=== PATIENT | female | born 1985 | race Caucasian/White ===

== ENCOUNTER → 2019-04-15 | Outpatient (CLI) | payer BC ==
[2019-04-16 00:51] LABS: T4, Free (Free Thyroxine) 1.3 ng/dL (0.80-1.80)
== END | disposition home or self-care (01) ==
LOC: LABWHC1 15:29
PROVIDERS: ATTEND Internal Medicine
DX: E66.9 Obesity, unspecified (principal); Z68.26 Body mass index [BMI] 26.0-26.9, adult; Z71.3 Dietary counseling and surveillance
CPT/HCPCS: 36415; 84439; 84443; 84481

== ENCOUNTER → 2019-05-17 | Outpatient (CLI) | payer BC ==
[2019-05-18 00:41] LABS: T4, Free (Free Thyroxine) 1.3 ng/dL (0.80-1.80)
== END | disposition home or self-care (01) ==
LOC: LABWHC1 17:38
PROVIDERS: ATTEND Internal Medicine
DX: E03.9 Hypothyroidism, unspecified (principal)
CPT/HCPCS: 36415; 84439; 84443

== ENCOUNTER 2019-10-14 09:20 | Outpatient (CLI) | payer BC ==
[2019-10-14 10:09] VITALS: BP 121/85; PULSE 101; RESP 16; TEMP 97.9
== END 2019-10-14 10:02 | disposition home or self-care (01) ==
LOC: FBPOP 09:20
PROVIDERS: ATTEND Obstetrics & Gynecology
DX: O13.9 Gestational [pregnancy-induced] hypertension without significant proteinuria, unspecified trimester (principal); Z3A.00 Weeks of gestation of pregnancy not specified
CPT/HCPCS: 59025

== ENCOUNTER 2019-10-18 16:14 | Inpatient (IN) | payer BC ==
[2019-10-18 17:05] LABS: Protein/Creatinine Ratio,Urine 0.061
[2019-10-18 17:19] LABS: Basophils % (A) 0 %; Eosinophils # (A) 0.1 k/uL (0-0.7); Eosinophils % (A) 1 %; HCT 33.6 % (34.0-46.0); HGB 11.2 gm/dL (11.4-16.0); Lymphocytes # (A) 1.5 k/uL (1.0-4.8); Lymphocytes % (A) 19 %; MCH 26.5 pg (25.0-35.0); MCHC 33.4 g/dL (31.0-37.0); MCV 79.3 fL (80.0-100.0); Mean Platelet Volume 9.5; Monocytes # (A) 0.5 k/uL (0-1.0); Monocytes % (A) 6 %; Neutrophils # (A) 5.6 k/uL (1.3-7.7); Neutrophils % (A) 71 %; Platelet Count 211 k/uL (150-450); RBC 4.23 m/uL (3.80-5.40); RDW 12.9 % (11.5-15.5); WBC 7.8 k/uL (3.8-10.6)
[2019-10-18 17:23] LABS: ALT 10 U/L (4-34); AST 24 U/L (14-36); African American GFR (CKD) >90 (>60 ml/min/1.73 sqM); Blood Urea Nitrogen 9 mg/dL (7-17); LDH 434 U/L (313-618); Non-African American GFR(CKD) >90 (>60 ml/min/1.73 sqM); Uric Acid 5.2 mg/dL (3.7-7.4)
[2019-10-18 17:26] LABS: Amorphous Sediment,Urine Rare /hpf; Bacteria,Urine Occasional /hpf; Calcium Oxalate Crystals,Urine Many /hpf; Hyaline Casts,Urine 1 /lpf (0-2); Mucus,Urine Few /hpf; RBC,Urine 24 /hpf (0-5); Squamous Epithelial Cell,Urine 1 /hpf (0-4); WBC,Urine 5 /hpf (0-5)
[2019-10-18 18:05] LABS: Appearance,Urine Slightly Cloudy (Clear); Color,Urine Yellow
[2019-10-18 18:06] LABS: Protein,Urine 1+ (Negative)
[2019-10-18 18:07] LABS: Bilirubin,Urine 1+ (Negative); Blood,Urine Negative (Negative); Glucose,Urine (UA) Negative (Negative); Ketones,Urine Negative (Negative); Leukocyte Esterase,Urine Small (Negative); Nitrite,Urine Negative (Negative)
[2019-10-18] MEDS ORDERED: ACETAMINOPHEN TAB 500 MG TAB PO STA (23:30)
[2019-10-18 23:32] VITALS: RESP 16
[2019-10-19] MEDS ORDERED: CLINDAMYCIN 900 MG in DEXTROSE 5% IN WATER 50 ML IVPB SCH ×2 (05:30)
[2019-10-19] MEDS ORDERED: OXYTOCIN 30 UNITS/500 ML NS 30 UNIT in SALINE 1 500ML.BAG IV SCH (06:00)
[2019-10-19] MEDS ORDERED: LIDOCAINE 0.5% (PF) 5 MG/ML (50 ML SDV) SQ PRN (06:00)
[2019-10-19] MEDS ORDERED: CARBOPROST TROMETHAMINE 250 MCG/ML 1 ML AMP IM PRN (06:00)
[2019-10-19] MEDS ORDERED: TERBUTALINE 1 MG/ML VIAL SQ PRN (06:00)
[2019-10-19] MEDS ORDERED: METHYLERGONOVINE 0.2 MG/ML 1 ML AMP IM PRN (06:00)
[2019-10-19] MEDS ORDERED: LACTATED RINGERS 1,000 ML IV SCH (06:00)
[2019-10-19] MEDS ORDERED: OXYTOCIN 10 UNIT/ML 1 ML VIAL IM PRN (06:00)
[2019-10-19 07:25] LABS: Basophils % (A) 0 %; Eosinophils # (A) 0.1 k/uL (0-0.7); Eosinophils % (A) 2 %; HCT 35.5 % (34.0-46.0); Lymphocytes # (A) 2.1 k/uL (1.0-4.8); Lymphocytes % (A) 27 %; MCH 27.1 pg (25.0-35.0); MCHC 33.8 g/dL (31.0-37.0); MCV 79.9 fL (80.0-100.0); Mean Platelet Volume 9.5; Monocytes # (A) 0.5 k/uL (0-1.0); Monocytes % (A) 7 %; Neutrophils # (A) 4.8 k/uL (1.3-7.7); Neutrophils % (A) 63 %; Platelet Count 220 k/uL (150-450); RBC 4.44 m/uL (3.80-5.40); RDW 12.9 % (11.5-15.5); WBC 7.7 k/uL (3.8-10.6)
--- NOTE | 2019-10-19 07:38 | P.HPOB ---
History of Present Illness H&P Date: 10/19/19 Chief Complaint: induction of labor 34-year-old presented at 38 weeks and 2 days to my office with a headache and nausea with a slightly elevated blood pressure. She was sent to triage for evaluation. She had another elevated blood pressure in triage but her frequent eclamptic labs were all normal. She was diagnosed with gestational hypertension admitted for induction of labor. Her cervix is 2-3 cm dilated, 80% effaced, and -2 station. She is shannan irregularly. heart tones 135 with moderate variability and reactive. Review of Systems All systems: negative Constitutional: Denies chills, Denies fever Eyes: denies blurred vision, denies pain Ears, nose, mouth and throat: Denies headache, Denies sore throat Cardiovascular: Denies chest pain, Denies shortness of breath Respiratory: Denies cough Gastrointestinal: Denies abdominal pain, Denies diarrhea, Denies nausea, Denies vomiting Genitourinary: Denies dysuria, Denies hematuria Musculoskeletal: Denies myalgias Integumentary: Denies pruritus, Denies rash Neurological: Denies numbness, Denies weakness Psychiatric: Denies anxiety, Denies depression Endocrine: Denies fatigue, Denies weight change Past Medical History Past Medical History: Asthma, Thyroid Disorder Additional Past Medical History / Comment(s): Obstetric history: She has had one previous vaginal delivery and 2 miscarriages. This is her fourth . She's had care with me since first trimester. Blood type is A+, antibodies negative, rubella immune, hepatitis B negative, RPR nonreactive, GBS positive. History of Any Multi-Drug Resistant Organisms: None Reported Past Surgical History: Cholecystectomy, Tonsillectomy Past Anesthesia/Blood Transfusion Reactions: No Reported Reaction Past Psychological History: Anxiety Smoking Status: Never smoker Past Alcohol Use History: Occasional Past Drug Use History: None Reported - Past Family History Brother(s) Family Medical History: Asthma Medications and Allergies Home Medications Medication Instructions Recorded Confirmed Type Albuterol Inhaler (Mhu) [Ventolin 1 - 2 puff INHALATION Q6HR PRN 01/17/15 10/14/19 History Inhaler] Levothyroxine Sodium [Synthroid] 75 mcg PO DAILY 01/17/15 10/14/19 History Budesonide-Formot 160-4.5 Mcg 2 puff INHALATION ONCE PRN 10/14/19 10/14/19 History [Symbicort 160-4.5 Mcg Inhaler] Pnv No.95/Ferrous Fum/Folic AC 1 each PO DAILY 10/14/19 10/14/19 History [ Multivitamin Tablet] Allergies Allergy/AdvReac Type Severity Reaction Status Date / Time Penicillins Allergy Severe Anaphylaxis Verified 10/18/19 16:32 Exam Osteopathic Statement: *. No significant issues noted on an osteopathic structural exam other than those noted in the History and Physical/Consult. Vital Signs Temp Pulse Resp BP Pulse Ox 10/19/19 04:00 89 115/71 10/18/19 23:31 97.2 F L 81 16 120/84 10/18/19 19:37 97.9 F 90 16 148/92 100 10/18/19 18:42 97.4 F L 76 15 132/87 99 Intake and Output 10/18/19 10/19/19 10/19/19 22:59 06:59 14:59 Other: # Voids 2 2 Weight 74.389 kg Heart: Regular rate and rhythm Lungs: Clear to auscultation bilaterally Abdomen: Soft, nontender Extremities: Negative Homans sign, 2+ pitting edema in bilateral lower extremities Results Result Diagrams: 10/19/19 05:50 10/18/19 17:04 Abnormal Lab Results - Last 24 Hours (Table) 10/18/19 10/18/19 10/19/19 Range/Units 16:25 17:04 05:50 Hgb 11.2 L (11.4-16.0) gm/dL Hct 33.6 L (34.0-46.0) % MCV 79.3 L 79.9 L (80.0-100.0) fL Urine Appearance Slightly Cloudy H (Clear) Urine Protein 1+ H (Negative) Urine Bilirubin 1+ H (Negative) Urine RBC 24 H (0-5) /hpf Calcium Oxalate Crystal Many H (None) /hpf Amorphous Sediment Rare H (None) /hpf Urine Bacteria Occasional H (None) /hpf Urine Mucus Few H (None) /hpf Assessment and Plan (1) Gestational hypertension Current Visit: Yes Status: Acute Code(s): O13.9 - GESTATIONAL HTN W/O SIGNIFICANT PROTEINURIA, UNSP TRIMESTER SNOMED Code(s): 561160712 Plan: 1. Induction of labor with amniotomy and Pitocin 2. Anticipate normal vaginal delivery
[2019-10-19] MEDS ORDERED: SODIUM CHLORIDE 0.9% 100 ML BAG ONE (09:40)
[2019-10-19] MEDS ORDERED: ROPIVACAINE 5MG/ML 20ML VIAL ONE (09:40)
[2019-10-19] MEDS ORDERED: fentaNYL (PF) 50 MCG/ML 5 ML AMP ONE (09:40)
[2019-10-19] MEDS ORDERED: ACETAMINOPHEN TAB 325 MG TAB PO PRN (12:50)
[2019-10-19] MEDS ORDERED: LANOLIN CREAM 5 GM TUBE TOPICAL PRN (12:50)
[2019-10-19] MEDS ORDERED: BENZOCAINE/MENTHOL SPRAY 1 GM/SPRAY AEROSOL TOPICAL PRN (12:50)
[2019-10-19] MEDS ORDERED: diphenhydrAMINE 50 MG CAP PO PRN (12:50)
[2019-10-19] MEDS ORDERED: ZOLPIDEM 5 MG TAB PO PRN (12:50)
[2019-10-19] MEDS ORDERED: HYDROCORTISONE 2.5% RECTAL CREAM 30 GM TUBE RECTAL PRN (12:50)
[2019-10-19] MEDS ORDERED: SIMETHICONE 80 MG CHEWABLE PO PRN (12:50)
[2019-10-19] MEDS ORDERED: WITCH HAZEL 1 EACH MED..PAD TOPICAL PRN (12:50)
[2019-10-19] MEDS ORDERED: IBUPROFEN 600 MG TAB PO PRN (12:50)
[2019-10-19] MEDS ORDERED: diphenhydrAMINE 50 MG/ML 1 ML VIAL IVP PRN ×2 (12:50)
[2019-10-19] MEDS ORDERED: diphenhydrAMINE 25 MG CAP PO PRN (12:50)
[2019-10-19] MEDS ORDERED: OXYTOCIN 20 UNITS/1000 ML NS 1,000 ML IV SCH (13:00)
[2019-10-19] MEDS ORDERED: SENNOSIDES-DOCUSATE SODIUM 1 EACH TAB PO SCH (20:00)
[2019-10-20 06:49] LABS: Basophils % (A) 0 %; Eosinophils # (A) 0.1 k/uL (0-0.7); Eosinophils % (A) 1 %; HCT 27.6 % (34.0-46.0); Hypochromasia Slight; Lymphocytes # (A) 2.1 k/uL (1.0-4.8); Lymphocytes % (A) 22 %; MCH 26.7 pg (25.0-35.0); MCHC 33.1 g/dL (31.0-37.0); MCV 80.8 fL (80.0-100.0); Mean Platelet Volume 9.4; Monocytes # (A) 0.5 k/uL (0-1.0); Monocytes % (A) 6 %; Neutrophils # (A) 6.4 k/uL (1.3-7.7); Neutrophils % (A) 69 %; Platelet Count 159 k/uL (150-450); RBC 3.41 m/uL (3.80-5.40); WBC 9.3 k/uL (3.8-10.6)
[2019-10-20 06:56] LABS: HGB 9.1 gm/dL (11.4-16.0)
--- NOTE | 2019-10-20 07:09 | P.PROBDLV ---
Vaginal Delivery Note - . Vaginal Delivery Note: 4-year-old presented at 38 weeks and 2 days to my office with a headache and nausea with a slightly elevated blood pressure. She was sent to triage for evaluation. She had another elevated blood pressure in triage but her frequent eclamptic labs were all normal. She was diagnosed with gestational hypertension admitted for induction of labor. Her cervix is 2-3 cm dilated, 80% effaced, and -2 station. She is shannan irregularly. heart tones 135 with moderate variability and reactive. Pitocin was started. Amniotomy performed at 6:45 AM and clear to bloody fluid noted. When she was uncomfortable she got an epidural. Her cervix was completely dilated at 11:35 AM. She pushed, and delivered a viable male infant intact perineum under epidural anesthesia at 12:05 PM. Head delivered OA, nuchal cord 1 easily reduced, anterior shoulder delivered gentle downward guidance followed by posterior shoulder and rest of body. Nose and mouth bulb suctioned, cord clamped and cut, infant placed mother's abdomen. Apgars 9, 9, weight 7 pounds. Placenta delivered spontaneously, intact with three-vessel cord at 12:07 PM. Vagina, cervix, and perineum were inspected. First-degree midline laceration was repaired with 3-0 Vicryl. Estimated blood loss 250 mL. Mother and baby in stable condition.
--- NOTE | 2019-10-20 07:14 | P.DS ---
Providers Date of admission: 10/18/19 17:45 Expected date of discharge: 10/20/19 Attending physician: Shruthi Muñiz Primary care physician: Stated None - Discharge Diagnosis(es) (1) Gestational hypertension Current Visit: Yes Status: Resolved (2) Status post normal vaginal delivery Current Visit: Yes Status: Acute Hospital Course: Patient presented for induction of labor due to gestational hypertension. She underwent a normal vaginal delivery. her course was uncomplicated. She'll be discharged home day #1 in stable condition to follow-up with me in 6 weeks. Plan - Discharge Summary New Discharge Prescriptions: New Ibuprofen [Motrin] 600 mg PO Q6HR PRN #30 tab PRN Reason: Mild Pain Or Fever >= 100.5 No Action Levothyroxine Sodium [Synthroid] 75 mcg PO DAILY Albuterol Inhaler (Mhu) [Ventolin Inhaler] 1 - 2 puff INHALATION Q6HR PRN PRN Reason: sob Budesonide-Formot 160-4.5 Mcg [Symbicort 160-4.5 Mcg Inhaler] 2 puff INHALATION ONCE PRN PRN Reason: Dyspnea Pnv No.95/Ferrous Fum/Folic AC [ Multivitamin Tablet] 1 each PO DAILY Discharge Medication List Albuterol Inhaler (Mhu) [Ventolin Inhaler] 1 - 2 puff INHALATION Q6HR PRN 01/17/15 [History] Levothyroxine Sodium [Synthroid] 75 mcg PO DAILY 01/17/15 [History] Budesonide-Formot 160-4.5 Mcg [Symbicort 160-4.5 Mcg Inhaler] 2 puff INHALATION ONCE PRN 10/14/19 [History] Pnv No.95/Ferrous Fum/Folic AC [ Multivitamin Tablet] 1 each PO DAILY 10/14/19 [History] Ibuprofen [Motrin] 600 mg PO Q6HR PRN #30 tab 10/20/19 [Rx] Follow up Appointment(s)/Referral(s): Shruthi Muñiz DO [Doctor of Osteopathic Medicine] - 6 Weeks Discharge Disposition: HOME SELF-CARE
[2019-10-21 09:01] VITALS: BP 141/89; PULSE 69; TEMP 98
== END 2019-10-20 13:40 | disposition home or self-care (01) | DRG 807 ==
LOC: FBPOP 16:14 → 4FBP 17:45
PROVIDERS: ADMIT Obstetrics & Gynecology; ATTEND Obstetrics & Gynecology
PROC: 10E0XZZ Delivery of Products of Conception, External Approach (ICD-10-PCS; principal; 2019-10-19)
PROC: 3E033VJ Introduction of Other Hormone into Peripheral Vein, Percutaneous Approach (ICD-10-PCS; principal; 2019-10-19)
PROC: 10907ZC Drainage of Amniotic Fluid, Therapeutic from Products of Conception, Via Natural or Artificial Opening (ICD-10-PCS; principal; 2019-10-19)
PROC: 0HQ9XZZ Repair Perineum Skin, External Approach (ICD-10-PCS; principal; 2019-10-19)
DX: O13.4 Gestational [pregnancy-induced] hypertension without significant proteinuria, complicating childbirth (principal); Z37.0 Single live birth; O99.344 Other mental disorders complicating childbirth; F41.9 Anxiety disorder, unspecified; O99.52 Diseases of the respiratory system complicating childbirth; J45.909 Unspecified asthma, uncomplicated; O69.81X0 Labor and delivery complicated by cord around neck, without compression, not applicable or unspecified; O70.0 First degree perineal laceration during delivery; O99.824 Streptococcus B carrier state complicating childbirth; Z3A.38 38 weeks gestation of pregnancy; Z79.51 Long term (current) use of inhaled steroids; Z79.890 Hormone replacement therapy; Z82.5 Family history of asthma and other chronic lower respiratory diseases; Z90.49 Acquired absence of other specified parts of digestive tract
CPT/HCPCS: 59025; 81001; 82565; 82570; 83615; 84156; 84450; 84460; 84520; 84550; 85025; 86850; 86900; 86901; 99215

== ENCOUNTER 2019-10-24 13:43 | Inpatient (IN) | payer BC ==
[2019-10-24] MEDS ORDERED: LACTATED RINGERS 1,000 ML IV SCH (14:30)
[2019-10-24] MEDS ORDERED: MAGNESIUM SULFATE-D5W PMX 1 GM in DEXTROSE/WATER 1 100ML.BAG IVPB ONE (14:37)
[2019-10-24] MEDS ORDERED: MAGNESIUM SULFATE-WATER PMX 4 GM in WATER FOR INJECTION 1 100ML.BAG IVPB ONE (14:45)
[2019-10-24] MEDS ORDERED: MAGNESIUM SULFATE-D5W PMX 1 GM in DEXTROSE/WATER 1 100ML.BAG IVPB SCH (14:45)
[2019-10-24 15:12] LABS: Basophils % (A) 0 %; Eosinophils # (A) 0.2 k/uL (0-0.7); Eosinophils % (A) 3 %; HGB 11.9 gm/dL (11.4-16.0); Hypochromasia Slight; Lymphocytes # (A) 1.8 k/uL (1.0-4.8); Lymphocytes % (A) 25 %; MCH 26.9 pg (25.0-35.0); MCHC 32.9 g/dL (31.0-37.0); MCV 81.6 fL (80.0-100.0); Mean Platelet Volume 8.7; Monocytes # (A) 0.4 k/uL (0-1.0); Monocytes % (A) 5 %; Neutrophils # (A) 4.7 k/uL (1.3-7.7); Neutrophils % (A) 65 %; Platelet Count 237 k/uL (150-450); RBC 4.42 m/uL (3.80-5.40); RDW 13.1 % (11.5-15.5); WBC 7.2 k/uL (3.8-10.6)
[2019-10-24] MEDS: MAGNESIUM SULFATE-WATER PMX 20 GM in WATER FOR INJECTION 1 500ML.BAG IV SCH (15:12)
[2019-10-24 15:16] LABS: Appearance,Urine Clear (Clear); Bacteria,Urine Rare /hpf; Bilirubin,Urine Negative (Negative); Blood,Urine Small (Negative); Color,Urine Colorless; Glucose,Urine (UA) Negative (Negative); Ketones,Urine Negative (Negative); Leukocyte Esterase,Urine Moderate (Negative); Nitrite,Urine Negative (Negative); PH, Urine 6.5 (5.0-8.0); Protein,Urine Negative (Negative); RBC,Urine <1 /hpf (0-5); Specific Gravity,Urine 1.004 (1.001-1.035); Squamous Epithelial Cell,Urine 1 /hpf (0-4); Urobilinogen,Urine <2.0 mg/dL (<2.0); WBC,Urine 9 /hpf (0-5)
[2019-10-24] MEDS: LACTATED RINGERS 1,000 ML IV SCH (15:16)
[2019-10-24 15:17] LABS: Protein/Creatinine Ratio,Urine 0.823
[2019-10-24 15:31] LABS: ALT 27 U/L (4-34); AST 40 U/L (14-36); African American GFR (CKD) >90 (>60 ml/min/1.73 sqM); Blood Urea Nitrogen 13 mg/dL (7-17); LDH 636 U/L (313-618); Non-African American GFR(CKD) >90 (>60 ml/min/1.73 sqM); Uric Acid 6.2 mg/dL (3.7-7.4)
[2019-10-24 16:03] LABS: INR 0.9 (<1.2); Partial Thromboplastin Time 21.6 sec (22.0-30.0); Prothrombin Time 9.4 sec (9.0-12.0)
[2019-10-24] MEDS: ACETAMINOPHEN TAB 325 MG TAB PO PRN (18:15)
[2019-10-25] MEDS: ACETAMINOPHEN TAB 325 MG TAB PO PRN ×2 (00:47→18:14)
[2019-10-25] MEDS: MAGNESIUM SULFATE-WATER PMX 20 GM in WATER FOR INJECTION 1 500ML.BAG IV SCH ×2 (01:25→11:43)
[2019-10-25] MEDS: LACTATED RINGERS 1,000 ML IV SCH (01:26)
--- NOTE | 2019-10-25 07:16 | P.HPOB ---
History of Present Illness H&P Date: 10/24/19 Chief Complaint: Headache, increased blood pressure 34-year-old presents 5 days with a headache for the last 3 days and increased blood pressures. Her blood pressures on arrival were 150s over 90s and with a frontal headache. Her labs showed 1 elevated liver enzyme, PC ratio of 0.8. She does have preeclampsia and will be admitted for magnesium sulfate and observation. Review of Systems All systems: negative Constitutional: Denies chills, Denies fever Eyes: denies blurred vision, denies pain Ears, nose, mouth and throat: Denies headache, Denies sore throat Cardiovascular: Denies chest pain, Denies shortness of breath Respiratory: Denies cough Gastrointestinal: Denies abdominal pain, Denies diarrhea, Denies nausea, Denies vomiting Genitourinary: Denies dysuria, Denies hematuria Musculoskeletal: Denies myalgias Integumentary: Denies pruritus, Denies rash Neurological: Denies numbness, Denies weakness Psychiatric: Denies anxiety, Denies depression Endocrine: Denies fatigue, Denies weight change Past Medical History Past Medical History: Asthma, Thyroid Disorder Additional Past Medical History / Comment(s): Obstetric history: She has had 2 vaginal delivery and 2 miscarriages. Blood type is A+, antibodies negative, rubella immune, hepatitis B negative, RPR nonreactive, GBS positive. History of Any Multi-Drug Resistant Organisms: None Reported Past Surgical History: Cholecystectomy, Tonsillectomy Past Anesthesia/Blood Transfusion Reactions: No Reported Reaction Past Psychological History: Anxiety Past Alcohol Use History: Occasional Past Drug Use History: None Reported - Past Family History Brother(s) Family Medical History: Asthma Medications and Allergies Home Medications Medication Instructions Recorded Confirmed Type Albuterol Inhaler (Mhu) [Ventolin 1 - 2 puff INHALATION Q6HR PRN 01/17/15 10/24/19 History Inhaler] Levothyroxine Sodium [Synthroid] 75 mcg PO DAILY 01/17/15 10/24/19 History Budesonide-Formot 160-4.5 Mcg 2 puff INHALATION ONCE PRN 10/14/19 10/24/19 History [Symbicort 160-4.5 Mcg Inhaler] Pnv No.95/Ferrous Fum/Folic AC 1 each PO DAILY 07/03/20 07/13/20 History [ Multivitamin Tablet] Ibuprofen [Motrin] 600 mg PO Q6HR PRN #30 tab 10/20/19 10/24/19 Rx Allergies Allergy/AdvReac Type Severity Reaction Status Date / Time Penicillins Allergy Severe Anaphylaxis Verified 10/24/19 14:24 Exam Osteopathic Statement: *. No significant issues noted on an osteopathic structural exam other than those noted in the History and Physical/Consult. Vital Signs Temp Pulse Resp BP Pulse Ox 10/25/19 05:00 97.3 F L 74 16 121/81 10/25/19 04:00 98.0 F 77 16 123/80 99 10/25/19 03:00 97.3 F L 73 16 121/80 97 10/25/19 02:00 97.3 F L 75 18 128/83 98 10/25/19 01:00 88 14 126/74 100 10/25/19 00:00 97.2 F L 76 16 131/85 98 10/24/19 23:00 98.0 F 71 16 123/71 97 10/24/19 22:00 97.9 F 71 18 124/76 100 10/24/19 21:00 97.3 F L 86 16 133/86 100 10/24/19 20:00 96.0 F L 90 16 121/71 99 10/24/19 19:00 91 16 133/85 100 10/24/19 17:58 77 16 134/84 100 10/24/19 17:00 97.6 F 75 16 133/89 100 10/24/19 16:00 97.9 F 89 16 140/83 99 10/24/19 15:00 97.9 F 89 18 150/92 99 10/24/19 14:29 98.6 F 82 16 154/88 100 Intake and Output 10/24/19 10/25/19 10/25/19 22:59 06:59 14:59 Intake Total 100 500 Output Total 3400 1850 Balance -3300 -1350 Intake: IV 100 Magnesium Sulfate-Water 100 Pmx 4 gm In Water For Injection 1 100ml.bag @ 300 mls/hr IVPB ONCE ONE Rx#:[id number] Intake, IV Titration 500 Amount Magnesium Sulfate-Water 500 Pmx 20 gm In Water For Injection 1 500ml.bag @ 2 GM/HR 50 mls/hr IV .Q10H [facility] Rx#:[id number] Output: Urine 3400 1850 Other: Voiding Method Indwelling Catheter Heart: Regular rate and rhythm Lungs: Clear to auscultation bilaterally Abdomen: Soft, nontender Extremities: Negative Homans sign, 3+ out of 4 DTR, 1+ bilateral pitting edema Results Result Diagrams: 10/24/19 14:35 10/24/19 14:35 Abnormal Lab Results - Last 24 Hours (Table) 10/24/19 10/24/19 10/24/19 Range/Units 14:35 14:35 15:13 APTT 21.6 L (22.0-30.0) sec AST 40 H (14-36) U/L Lactate Dehydrogenase 636 H (313-618) U/L Urine Blood Small H (Negative) Ur Leukocyte Esterase Moderate H (Negative) Urine WBC 9 H (0-5) /hpf Urine Bacteria Rare H (None) /hpf Assessment and Plan (1) Preeclampsia in period Current Visit: Yes Status: Acute Code(s): O14.95 - UNSPECIFIED PRE- ECLAMPSIA, COMPLICATING THE PUERPERIUM SNOMED Code(s): 547144693 Plan: 1. Admit for observation and placed on magnesium sulfate with a 4 g bolus and then 2 g an hour. 2. Tylenol for headache 3. Monitor blood pressures closely 4. Seizure precautions
--- NOTE | 2019-10-25 07:39 | P.PN ---
Progress Note - Text Progress Note Date: 10/25/19 34-year-old day #6 readmitted with preeclampsia. She's been magnesium sulfate since yesterday afternoon. Her blood pressures have come down to 120s over 60s. Her headache has doubled to a 3 out of 10 and has more behind her eyes and occipital and frontal. She has 2+ out of 4 DTRs and no swelling in her extremities. I relayed the plan to her of discontinuing the magnesium sulfate this afternoon, after 24 hours of treatment, and then seeing her blood pressures respond to no medication. If her blood pressures rise I will add blood pressure medicine.
--- NOTE | 2019-10-26 07:21 | P.DS ---
Providers Date of admission: 10/24/19 14:17 Expected date of discharge: 10/26/19 Attending physician: Shruthi Muñiz Primary care physician: Stated None - Discharge Diagnosis(es) (1) Preeclampsia in period Current Visit: Yes Status: Acute Hospital Course: Patient was readmitted 5 days for preeclampsia. She was put on magnesium sulfate for 24 hours. After magnesium sulfate was off, her headache did not return. Her blood pressures are 118-126/60's-70's with one outlier at 152/94. She does have a way to monitor blood pressure at home and she was advised to do so. I'll see her in 1 week for blood pressure check. Signs and symptoms or preeclampsia were reviewed again with the patient she and her both expressed understanding about when to call, went to check her blood pressure and what to do if it is high. Plan - Discharge Summary Discharge Rx Participant: No New Discharge Prescriptions: No Action Levothyroxine Sodium [Synthroid] 75 mcg PO DAILY Albuterol Inhaler (Mhu) [Ventolin Inhaler] 1 - 2 puff INHALATION Q6HR PRN PRN Reason: sob Budesonide-Formot 160-4.5 Mcg [Symbicort 160-4.5 Mcg Inhaler] 2 puff INHALATION ONCE PRN PRN Reason: Dyspnea Pnv No.95/Ferrous Fum/Folic AC [ Multivitamin Tablet] 1 each PO DAILY Ibuprofen [Motrin] 600 mg PO Q6HR PRN #30 tab PRN Reason: Mild Pain Or Fever >= 100.5 Discharge Medication List Albuterol Inhaler (Mhu) [Ventolin Inhaler] 1 - 2 puff INHALATION Q6HR PRN 01/17/15 [History] Levothyroxine Sodium [Synthroid] 75 mcg PO DAILY 01/17/15 [History] Budesonide-Formot 160-4.5 Mcg [Symbicort 160-4.5 Mcg Inhaler] 2 puff INHALATION ONCE PRN 10/14/19 [History] Pnv No.95/Ferrous Fum/Folic AC [ Multivitamin Tablet] 1 each PO DAILY 10/14/19 [History] Ibuprofen [Motrin] 600 mg PO Q6HR PRN #30 tab 10/20/19 [Rx] Follow up Appointment(s)/Referral(s): Antonino,Shruthi, DO [Doctor of Osteopathic Medicine] - 1 Week (for BP check) Discharge Disposition: HOME SELF-CARE
[2019-10-26 08:26] VITALS: PULSE 65; RESP 16; TEMP 98.2
[2019-10-26 09:50] VITALS: BP 139/83
== END 2019-10-26 09:58 | disposition home or self-care (01) | DRG 776 ==
LOC: FBPOP 13:43 → 4FBP 14:17
PROVIDERS: ADMIT Obstetrics & Gynecology; ATTEND Obstetrics & Gynecology
DX: O14.95 Unspecified pre-eclampsia, complicating the puerperium (principal); J45.909 Unspecified asthma, uncomplicated; E07.9 Disorder of thyroid, unspecified; F41.9 Anxiety disorder, unspecified; R74.8 Abnormal levels of other serum enzymes; Z22.330 Carrier of Group B streptococcus; Z79.890 Hormone replacement therapy; Z79.51 Long term (current) use of inhaled steroids; Z79.899 Other long term (current) drug therapy; Z90.49 Acquired absence of other specified parts of digestive tract; Z98.890 Other specified postprocedural states; Z88.0 Allergy status to penicillin; Z82.5 Family history of asthma and other chronic lower respiratory diseases
CPT/HCPCS: 81001; 82565; 82570; 83615; 83735; 84156; 84450; 84460; 84520; 84550; 85025; 85384; 85610; 85730

== ENCOUNTER → 2021-04-09 | Outpatient (CLI) | payer BC ==
[2021-04-09 16:56] LABS: Basophils # (A) 0.04 X 10*3/uL (0.00-0.10); Basophils % (A) 0.8 %; Eosinophils # (A) 0.04 X 10*3/uL (0.04-0.35); Eosinophils % (A) 0.8 %; HCT 42.9 % (37.2-46.3); HGB 13.9 g/dL (12.0-15.0); Lymphocytes # (A) 1.93 X 10*3/uL (0.90-5.00); Lymphocytes % (A) 39.3 %; MCH 26.9 pg (27.0-32.0); MCHC 32.4 g/dL (32.0-37.0); MCV 83.1 fL (80.0-97.0); Mean Platelet Volume 11.4 fL (9.5-12.2); Monocytes # (A) 0.42 X 10*3/uL (0.20-1.00); Monocytes % (A) 8.6 %; Neutrophils # (A) 2.47 X 10*3/uL (1.80-7.70); Neutrophils % (A) 50.3 %; Platelet Count 240 X 10*3/uL (140-440); RBC 5.16 X 10*6/uL (4.10-5.20); RDW 12.6 % (11.5-14.5); WBC 4.91 X 10*3/uL (4.50-10.00)
[2021-04-09 18:17] LABS: ALT 22 U/L (8-44); AST 31 U/L (13-35); African American GFR (CKD) 113.2 (60.0-200.0); Albumin 4.8 g/dL (3.8-4.9); Albumin/Globulin Ratio 1.78 (1.60-3.17); Alkaline Phosphatase 57 U/L (41-126); BUN/Creat Ratio 17.97 Ratio (12.00-20.00); Blood Urea Nitrogen 14.2 mg/dL (9.0-27.0); Calcium 9.4 mg/dL (8.7-10.3); Carbon Dioxide 22.8 mmol/L (20.0-27.5); Chloride 100 mmol/L (96-109); Globulin 2.7 g/dL (1.6-3.3); Glucose 96 mg/dL (70-110); Non-African American GFR(CKD) 97.7 (60.0-200.0); Potassium 4.2 mmol/L (3.5-5.5); Sodium 137 mmol/L (135-145); Total Protein 7.5 g/dL (6.2-8.2)
[2021-04-09 18:34] LABS: C Reactive Protein <0.30 mg/dL (0.00-0.80); Rheumatoid Factor, Qnt <10 IU/mL (0-15)
[2021-04-09 19:25] LABS: Erythrocyte Sedimentation Rate 4 mm/Hr (0-20)
[2021-04-10 12:51] LABS: APTT 42 Sec(s) (<43); Dilute Russell Viper Venom 32 Sec(s) (<44)
== END | disposition home or self-care (01) ==
LOC: LABWHC1 09:42
PROVIDERS: ATTEND Family Medicine
DX: J45.998 Other asthma (principal); R21 Rash and other nonspecific skin eruption
CPT/HCPCS: 36415; 80053; 85025; 85613; 85652; 85730; 86038; 86140; 86431